=== PATIENT | male | born 1935 | race Caucasian/White ===

== ENCOUNTER → 2017-04-07 | Outpatient (CLI) | payer MEDICARE, OTHER ==
[~2017-04-07] MED LIST: ALDACTONE25 MG PO; AMBIEN5 MG PO; AMLODIPINE BES2.5 MG PO; ASPIRIN EC81 MG PO; ASPIRIN325 MG PO; CELEXA20 MG PO; COZAAR100 MG PO; CPAP INH; CRESTOR20 MG PO; EYE-VITE PO; FLOMAX0.4 MG PO; GLUCOPHAGE500 MG PO; LEVOTHROID(SYN75 MCG PO; MIRALAX17 GM PO; PERCOCET 5-3251 EACH PO; PREVACID30 M1 PO; PROSCAR5 MG PO; THERAGRAN-M1 TAB PO; TYLENOL EXTRA500 MG PO
== END | disposition disaster alternative care site (69) ==
LOC: GRAD 07:59
DX: N28.9 Disorder of kidney and ureter, unspecified (principal)